=== PATIENT | female | born 1955 | race Caucasian/White ===

== ENCOUNTER 2023-02-05 08:15 | Emergency (ER) | payer MEDICARE, MEDICAID ==
[~2023-02-05] VITALS: Ht 170.2 cm; Wt 88.8 kg
--- NOTE | 2023-02-05 08:54 | NUR ---
Updated patient on plan of care for consultation to orthopedics and NPO status for patella fracture
[2023-02-05] MEDS ORDERED: HYDROcodone/acetaminophen 10/325mg tab PO ONE (09:10)
[2023-02-05] MEDS ORDERED: ondansetron 4mg rapidly disintigrating tab PO ONE (09:10)
[2023-02-05] MEDS ORDERED: OXYC-145 PO (09:37)
[2023-02-05 10:32] VITALS: BP 137/86
== END 2023-02-05 10:33 | disposition home or self-care (01) ==
LOC: ER 08:16
DX: S82.092A Other fracture of left patella, initial encounter for closed fracture (principal); F32.A Depression, unspecified; Z88.2 Allergy status to sulfonamides; Z79.899 Other long term (current) drug therapy; W18.39XA Other fall on same level, initial encounter; Y93.89 Activity, other specified; Y92.89 Other specified places as the place of occurrence of the external cause; Y99.8 Other external cause status
CPT/HCPCS: 29505; 73564; 99284; A6449